=== PATIENT | female | born 1965 | race Caucasian/White ===

== ENCOUNTER → 2021-03-11 | Outpatient (CLI) | payer OTHER | END | disposition home or self-care (01) | LOC: RAH 02-12 09:17 | PROVIDERS: ATTEND Family Medicine | DX: R92.2 Inconclusive mammogram (principal); N63.14 Unspecified lump in the right breast, lower inner quadrant | CPT/HCPCS: 77066 ==

== ENCOUNTER 2022-04-14 06:28 | Observation (INO) | payer OTHER ==
[2022-04-11 12:02] LABS: BASOPHILS % (AUTO) 0.6 % (0.0-5.0); EOSINOPHILS % (AUTO) 8.6 % (0.0-8.0); HEMATOCRIT 34.8 % (36-48); LYMPHOCYTES % (AUTO) 26.5 % (21.0-51.0); MEAN CORPUSCULAR HEMOGLOBIN 33.5 pg (27.0-33.0); MEAN CORPUSCULAR HGB CONC 31.6 g/dL (32.0-36.0); MEAN CORPUSCULAR VOLUME 106.1 fL (79-99); NEUTROPHILS % (AUTO) 57.9 % (40.0-77.0); PLATELET COUNT (AUTO) 203 K/uL (130-400); RED BLOOD CELL COUNT(AUTO) 3.28 MIL/uL (4.00-5.50); RED CELL DISTRIBUTION WIDTH 14.5 % (11.0-15.5); WHITE BLOOD COUNT (AUTO) 6.7 K/uL (4.8-10.8)
[2022-04-11 12:04] LABS: APPEARANCE,URINE CLEAR (CLEAR); BILIRUBIN,URINE NEGATIVE (NEGATIVE); COLOR,URINE YELLOW (YELLOW); GLUCOSE, URINE (UA) NEGATIVE (NEGATIVE); KETONES,URINE NEGATIVE (NEGATIVE); LEUKOCYTE ESTERASE ,URINE NEGATIVE (NEGATIVE); NITRATE,URINE NEGATIVE (NEGATIVE); OCCULT BLOOD,URINE NEGATIVE (NEGATIVE); PH,URINE 5.5 (5.0-8.0); PROTEIN,URINE NEGATIVE (NEGATIVE); UROBILINOGEN,URINE 0.2 mg/dL (0.2-1.0)
[2022-04-11 12:15] LABS: INR 0.93 (0.85-1.15)
[2022-04-11 12:16] LABS: PARTIAL THROMBOPLASTIN TIME 26.8 SEC (26.3-35.5)
[2022-04-11 12:18] LABS: ALBUMIN 3.4 g/dL (3.5-5.0); BILIRUBIN,TOTAL 0.3 mg/dL (0.2-1.0); POTASSIUM 3.9 mmol/L (3.5-5.1); TOTAL PROTEIN, SERUM 7.7 g/dL (6.0-8.3)
[2022-04-11 15:58] VITALS: BP 142/81
[~2022-04-14] VITALS: Ht 160 cm; Wt 83.6 kg
[2022-04-14] VITALS (22 sets, daily range): BP systolic 133–160; BP diastolic 84–93
[2022-04-14] MEDS: CEFAZOLIN SODIUM 2 GM VIAL IV SCH ×2 (05:00→13:10)
[2022-04-14] MEDS ORDERED: CEFAZOLIN SODIUM 1 GM VIAL ONE (07:13)
[2022-04-14] MEDS ORDERED: LACTATED RINGERS 1000ML 1,000 ML IV ONE (07:13)
[2022-04-14] MEDS ORDERED: LIDOCAINE/PRILOCAINE CREAM 5GM TUBE TP ONE (07:32)
[2022-04-14] MEDS ORDERED: PROPOFOL 10 MG/ML 20ML VIAL IV ONE ×2 (12:25→14:47)
[2022-04-14] MEDS ORDERED: ROCURONIUM 10MG/1ML SYR 10 MG/ML ML ONE ×2 (12:25→14:28)
[2022-04-14] MEDS ORDERED: MIDAZOLAM HCL 1 MG/ML 2ML VIAL ONE (12:46)
[2022-04-14] MEDS ORDERED: FENTANYL CITRATE PF 50 MCG/1 ML 2ML VIAL ONE ×2 (12:47→15:59)
[2022-04-14] MEDS ORDERED: DEXAMETHASONE SOD PHOSPHATE 4 MG/ML 1ML VIAL ONE (13:07)
[2022-04-14] MEDS ORDERED: ONDANSETRON 4MG INJ ONE (13:08)
[2022-04-14] MEDS ORDERED: GLYCOPYRROLATE 1 MG/5 ML SYRINGE ONE (13:08)
[2022-04-14] MEDS ORDERED: NEOSTIGMINE 5MG/5ML SYR IV ONE (13:08)
[2022-04-14] MEDS ORDERED: PHENYLEPHRINE HCL 10 MG/ML 1ML VIAL IV ONE (13:09)
[2022-04-14] MEDS ORDERED: 0.9%NACL 10ML VIAL ONE (14:28)
[2022-04-14] MEDS ORDERED: ROPIVACAINE 0.5% 5MG/ML 30ML IJ ONE (15:24)
[2022-04-14] MEDS ORDERED: KETOROLAC 30MG VIAL (30MG/ML) ONE (15:59)
[2022-04-14] MEDS ORDERED: ONDANSETRON 4MG INJ IVP PRN (16:00)
[2022-04-14] MEDS ORDERED: MEPERIDINE-PF 25 MG/ML SYG IV PRN (16:00)
[2022-04-14] MEDS ORDERED: MEPERIDINE-PF 25 MG/ML SYG ONE (16:47)
[2022-04-14] MEDS: CELECOXIB 200 MG CAP PO SCH (20:11)
[2022-04-14] MEDS: GABAPENTIN 300 MG CAPSULE PO SCH (20:11)
[2022-04-15] VITALS: BP 110/75
[2022-04-15 04:00] VITALS: BP 101/64
[2022-04-15] MEDS: CEFAZOLIN SODIUM 2 GM VIAL IV SCH (04:44)
[2022-04-15 05:10] LABS: CREATININE 1.3 mg/dL (0.5-1.5); POTASSIUM 4.6 mmol/L (3.5-5.1)
[2022-04-15 07:50] VITALS: BP 110/76
[2022-04-15] MEDS: GABAPENTIN 300 MG CAPSULE PO SCH (08:35)
[2022-04-15] MEDS: CELECOXIB 200 MG CAP PO SCH (08:35)
[2022-04-15 10:55] VITALS: BP 89/48
[2022-04-15 12:30] VITALS: BP 112/61
== END 2022-04-15 13:40 | disposition home health service (06) ==
LOC: DAH 06:28 → 4DH 06:29
PROVIDERS: ADMIT Student in an Organized Health Care Education/Training Program; ATTEND Student in an Organized Health Care Education/Training Program
DX: C50.911 Malignant neoplasm of unspecified site of right female breast (principal); Z20.822 Contact with and (suspected) exposure to COVID-19; I10 Essential (primary) hypertension; E78.5 Hyperlipidemia, unspecified; F41.9 Anxiety disorder, unspecified; F32.9 Major depressive disorder, single episode, unspecified; Z79.84 Long term (current) use of oral hypoglycemic drugs; Z90.49 Acquired absence of other specified parts of digestive tract; Z79.899 Other long term (current) drug therapy; Z98.890 Other specified postprocedural states; Z98.891 History of uterine scar from previous surgery; Z92.21 Personal history of antineoplastic chemotherapy
CPT/HCPCS: 36415; 64450; 71045; 76942; 78195; 80048; 80053; 81003; 82948; 85025; 85610; 85730; 87635; 93005; A9541; C9803; G0378; J0690; J1100; J1885; J2175; J2250; J2370; J2405; J2704; J2710; J2795; J3010; J3490; J7030; J7120

== ENCOUNTER → 2022-08-19 | Outpatient (CLI) | payer OTHER | END | disposition home or self-care (01) | LOC: RAH 11:17 | PROVIDERS: ATTEND Student in an Organized Health Care Education/Training Program | DX: N63.11 Unspecified lump in the right breast, upper outer quadrant (principal) | CPT/HCPCS: 76604 ==

== ENCOUNTER → 2022-10-16 | Outpatient (CLI) | payer OTHER ==
[~2022-10-16] MED LIST: GADOTERATE MEGLUMINE 10 MMOL/20 ML VIAL IV ONE
== END | disposition home or self-care (01) ==
LOC: RAH 09:48
PROVIDERS: ATTEND Internal Medicine Hematology & Oncology
DX: C50.919 Malignant neoplasm of unspecified site of unspecified female breast (principal); C79.51 Secondary malignant neoplasm of bone; M48.061 Spinal stenosis, lumbar region without neurogenic claudication; M51.16 Intervertebral disc disorders with radiculopathy, lumbar region; C50.311 Malignant neoplasm of lower-inner quadrant of right female breast; C78.01 Secondary malignant neoplasm of right lung; C77.3 Secondary and unspecified malignant neoplasm of axilla and upper limb lymph nodes; C78.02 Secondary malignant neoplasm of left lung; R52 Pain, unspecified; E86.0 Dehydration; R11.2 Nausea with vomiting, unspecified; E87.6 Hypokalemia; K20.90 Esophagitis, unspecified without bleeding; D70.1 Agranulocytosis secondary to cancer chemotherapy
CPT/HCPCS: 72158; A9575

== ENCOUNTER 2022-12-25 09:08 | Observation (INO) | payer OTHER ==
[~2022-12-25] VITALS: Ht 160 cm; Wt 87.5 kg
[2022-12-25 09:42] LABS: BASOPHILS % (AUTO) 0.7 % (0.0-5.0); EOSINOPHILS % (AUTO) 3.4 % (0.0-8.0); HEMATOCRIT 40.7 % (36-48); LYMPHOCYTES % (AUTO) 22.3 % (21.0-51.0); MEAN CORPUSCULAR HEMOGLOBIN 27.3 pg (27.0-33.0); MEAN CORPUSCULAR HGB CONC 32.4 g/dL (32.0-36.0); MEAN CORPUSCULAR VOLUME 84.3 fL (79-99); MONOCYTES % (AUTO) 6.6 % (3.0-13.0); NEUTROPHILS % (AUTO) 66.7 % (40.0-77.0); PLATELET COUNT (AUTO) 220 K/uL (130-400); RED BLOOD CELL COUNT(AUTO) 4.83 MIL/uL (4.00-5.50); RED CELL DISTRIBUTION WIDTH 14.6 % (11.0-15.5); WHITE BLOOD COUNT (AUTO) 7.1 K/uL (4.8-10.8)
[2022-12-25 09:55] LABS: ALBUMIN 3.6 g/dL (3.5-5.0); MAGNESIUM 1.5 mg/dL (1.80-2.40); POTASSIUM 3.7 mmol/L (3.5-5.1); TOTAL PROTEIN, SERUM 7.8 g/dL (6.0-8.3)
[2022-12-25 10:04] LABS: INR 0.93 (0.85-1.15); PROTHROMBIN TIME 9.8 SEC (9.6-11.6)
[2022-12-25 10:32] LABS: APPEARANCE,URINE CLEAR (CLEAR); BILIRUBIN,URINE NEGATIVE (NEGATIVE); COLOR,URINE LIGHT-YELLOW (YELLOW); GLUCOSE, URINE (UA) NEGATIVE (NEGATIVE); KETONES,URINE NEGATIVE (NEGATIVE); LEUKOCYTE ESTERASE ,URINE 250 Leu/uL (NEGATIVE); NITRATE,URINE NEGATIVE (NEGATIVE); OCCULT BLOOD,URINE NEGATIVE (NEGATIVE); PROTEIN,URINE NEGATIVE (NEGATIVE); UROBILINOGEN,URINE 0.2 mg/dL (0.2-1.0)
[2022-12-25 10:39] LABS: BACTERIA,URINE RARE /HPF (None Seen); MUCUS,URINE RARE LPF (None Seen); SQUAMOUS EPITHELIAL CELL,UR RARE /HPF (0-2); WBC,URINE 26-50 /HPF (0-1)
[2022-12-25] MEDS ORDERED: MAGNESIUM OXIDE 400 MG TABLET PO SCH (11:30)
[2022-12-25] MEDS: 0.9%NACL 1000ML 1,000 ML IV SCH (14:00)
[2022-12-25] MEDS ORDERED: ONDANSETRON 4MG INJ IVP PRN (14:00)
[2022-12-25] MEDS ORDERED: AMLODIPINE 5 MG TAB PO SCH (16:00)
[2022-12-25] MEDS ORDERED: IOHEXOL-350 75 ML VIAL IV ONE (17:15)
[2022-12-25 17:19] VITALS: BP 158/93
[2022-12-25] MEDS: MORPHINE 2 MG SYG IVP PRN ×2 (18:24→22:06)
[2022-12-25 20:00] VITALS: BP 155/88
[2022-12-25] MEDS ORDERED: OXYC1TAB12 PO (22:11)
[2022-12-25] MEDS ORDERED: BUPR-317 PO (22:11)
[2022-12-25] MEDS ORDERED: FENT1PAT60 TP (22:11)
[2022-12-25] MEDS ORDERED: LETR2.5T7 PO (22:11)
[2022-12-26] VITALS: BP 159/94
[2022-12-26] MEDS: 0.9%NACL 1000ML 1,000 ML IV SCH ×2 (01:50→09:25)
[2022-12-26] MEDS: MORPHINE 2 MG SYG IVP PRN ×2 (03:05→09:25)
[2022-12-26 04:00] VITALS: BP 140/91
[2022-12-26 08:00] VITALS: BP 137/94
[2022-12-26] MEDS ORDERED: AMLODIPINE 5 MG TAB PO SCH (09:00)
[2022-12-26 12:00] VITALS: BP 140/96
== END 2022-12-26 17:50 | disposition home or self-care (01) ==
LOC: EDH 09:08 → EDHIP 12:45 → 4AH 15:18
PROVIDERS: ADMIT Internal Medicine Hematology & Oncology; ATTEND Internal Medicine Hematology & Oncology
DX: R07.89 Other chest pain (principal); I20.0 Unstable angina; N30.00 Acute cystitis without hematuria; I10 Essential (primary) hypertension; E83.42 Hypomagnesemia; E83.52 Hypercalcemia; E83.51 Hypocalcemia; C50.919 Malignant neoplasm of unspecified site of unspecified female breast; C79.51 Secondary malignant neoplasm of bone; E11.9 Type 2 diabetes mellitus without complications; F32.A Depression, unspecified; Z90.11 Acquired absence of right breast and nipple; Z92.21 Personal history of antineoplastic chemotherapy; Z79.899 Other long term (current) drug therapy
CPT/HCPCS: 96374; 96376 ×2; 99285; 83735; 84484; 80053; 83880; 85025; 85378; 85610; 87088; 82948 ×3; 81001; 36415; 71045; 71270; 93971; 93005; 96361; 93306; 93356; G0378 ×28; J7030; Q9967